=== PATIENT | female | born 1950 | race Native Hawaiian/Other Pacific Islander ===

== ENCOUNTER 2018-08-14 08:23 | Outpatient (CLI) | payer OTHER ==
[~2018-08-14 08:23] MED LIST: ACYCLOVIR400 MG OR; LISI20TA11 PO; MECLIZINE25 MG OR; MOBIC15 MG OR; PANT40TA PO; ZANTAC300 MG PO; [UNRECOGNIZED DRUG - OTHER] OR
== END 2018-08-14 20:20 | disposition home or self-care (01) ==
LOC: MAMMO 08:23
DX: Z12.31 Encounter for screening mammogram for malignant neoplasm of breast (principal)

== ENCOUNTER 2020-01-26 13:54 | Outpatient (CLI) | payer OTHER ==
[2020-01-26 15:59] LABS: POTASSIUM 5.1 mmol/L (3.6-5.2)
== END 2020-01-26 23:32 | disposition home or self-care (01) ==
LOC: LAB 13:54
PROVIDERS: Nurse Practitioner Family
DX: E87.6 Hypokalemia (principal)
CPT/HCPCS: 80053

== ENCOUNTER 2021-04-06 08:23 | Outpatient (CLI) | payer OTHER | END 2021-04-06 19:22 | disposition home or self-care (01) | LOC: RAD 08:23 | PROVIDERS: ATTEND Nurse Practitioner Family | DX: M25.551 Pain in right hip (principal); W19.XXXA Unspecified fall, initial encounter ==

== ENCOUNTER 2022-06-13 10:36 | Outpatient (CLI) | payer OTHER | END 2022-06-13 20:14 | disposition home or self-care (01) | LOC: US 10:36 | PROVIDERS: ATTEND Nurse Practitioner Family | DX: R79.89 Other specified abnormal findings of blood chemistry (principal) ==

== ENCOUNTER 2022-06-27 17:23 | Inpatient (IN) | payer OTHER ==
[~2022-06-27] VITALS: Ht 152.4 cm; Wt 61.0 kg
[~2022-06-27 17:23] MED LIST changes: -MECLIZINE25 MG OR; +MECLIZINE25 MG PO
[2022-06-27 18:13] LABS: PLATELET COUNT 583 K/uL (152-353)
[2022-06-27 18:20] VITALS: BP 149/67; TEMP 81.1; Ht 152.4 cm; Wt 61.0 kg
[2022-06-27 20:38] VITALS: BP 147/66; TEMP 98.2
[2022-06-27] MEDS ORDERED: ESOMEPRAZOLE MA40 M1 PO (21:35)
[2022-06-27] MEDS ORDERED: LEVO0.0218 PO (21:39)
[2022-06-27] MEDS ORDERED: PRIM50TA4 PO (21:41)
[2022-06-27] MEDS ORDERED: ACET-689 PO (21:44)
[2022-06-27] MEDS ORDERED: PRAVASTATIN10 MG PO (21:44)
[2022-06-27] MEDS ORDERED: LABETALOL200 MG PO (21:46)
[2022-06-27] MEDS ORDERED: LIPO FLAVONOID PO (21:48)
[2022-06-27] MEDS ORDERED: FLUTICASON50 MCG/AC1 NAS (21:50)
[2022-06-27] MEDS ORDERED: CLARITIN10 M1 PO (21:55)
[2022-06-27] MEDS ORDERED: NIFE60TA5 PO (21:56)
[2022-06-28] VITALS (7 sets, daily range): BP systolic 132–152; BP diastolic 60–74; TEMP 98.2–99.3
[2022-06-29 04:03] VITALS: BP 149/60; TEMP 98.8
[2022-06-29 08:00] VITALS: BP 142/81; TEMP 98.1
[2022-06-29 12:00] VITALS: BP 153/74; TEMP 98
[2022-06-29 15:24] VITALS: BP 153/77; TEMP 98.3
[2022-06-29 19:30] VITALS: BP 149/72; TEMP 98.8
[2022-06-29 23:31] VITALS: BP 156/74; TEMP 98.4
[2022-06-30 03:33] VITALS: BP 123/79; TEMP 97.9
[2022-06-30 07:36] LABS: PLATELET COUNT 436 K/uL (152-353)
[2022-06-30 07:43] LABS: POTASSIUM 3.1 mmol/L (3.6-5.2)
[2022-06-30 08:29] VITALS: BP 152/75; TEMP 98.3
[2022-06-30 11:46] VITALS: BP 130/79; TEMP 97.7
[2022-06-30 16:18] VITALS: BP 158/72; TEMP 97.9
[2022-06-30 19:50] VITALS: BP 157/83; TEMP 98.6
[2022-06-30 23:38] VITALS: BP 140/66; TEMP 98.1
[2022-07-01 03:44] VITALS: BP 152/83; TEMP 97.9
[2022-07-01 08:00] VITALS: BP 165/72; TEMP 98.1
[2022-07-01 12:00] VITALS: BP 167/83; TEMP 97.8
[2022-07-01 16:00] VITALS: BP 148/87; TEMP 97.9
[2022-07-01 20:00] VITALS: BP 167/77; TEMP 98.7
[2022-07-01 23:52] VITALS: BP 135/80; TEMP 98.8
[2022-07-02 03:52] VITALS: BP 159/74; TEMP 97.8
[2022-07-02 05:37] LABS: PLATELET COUNT 380 K/uL (152-353)
[2022-07-02 05:55] LABS: POTASSIUM 3.8 mmol/L (3.6-5.2)
[2022-07-02 08:00] VITALS: BP 166/91; TEMP 98.2
[2022-07-02] MEDS ORDERED: LEVO250T2 PO (09:09)
== END 2022-07-02 11:40 | disposition home or self-care (01) | DRG 603 ==
LOC: MED/SURG 17:23
PROVIDERS: ADMIT Internal Medicine; ATTEND Internal Medicine
DX: L03.114 Cellulitis of left upper limb (principal); I10 Essential (primary) hypertension; K21.9 Gastro-esophageal reflux disease without esophagitis; M06.8A Other specified rheumatoid arthritis, other specified site; E78.49 Other hyperlipidemia; H81.09 Meniere's disease, unspecified ear; E03.8 Other specified hypothyroidism
CPT/HCPCS: 36415; 80053; 80202; 84145; 85027; 85379; 86140; 87040; 87077; 87185; 87205; 87635; 96365; 96367; 96372; 99220; G0378; G0379; J0696; J1650; J3370; U0003